=== PATIENT | female | born 1970 | race Caucasian/White ===

== ENCOUNTER 2018-07-13 11:48 | Emergency (ER) | payer SELFPAY | END 2018-07-13 12:33 | disposition home or self-care (01) | LOC: NAV ERS 11:48 | DX: R21 Rash and other nonspecific skin eruption (principal); J45.909 Unspecified asthma, uncomplicated; F17.210 Nicotine dependence, cigarettes, uncomplicated | CPT/HCPCS: 99281 ==

== ENCOUNTER 2018-09-03 19:19 | Emergency (ER) | payer SELFPAY | END 2018-09-03 20:38 | disposition home or self-care (01) | LOC: NAV ERS 19:19 | DX: J45.901 Unspecified asthma with (acute) exacerbation (principal); J06.9 Acute upper respiratory infection, unspecified; F17.210 Nicotine dependence, cigarettes, uncomplicated | CPT/HCPCS: 93005; 94640; 94760; J7620 ==